=== PATIENT | female | born 1985 | race Two or more races ===

== ENCOUNTER 2020-09-10 07:45 | Inpatient (IN) | payer OTHER ==
[~2020-09-10] VITALS: Ht 160 cm; Wt 54.4 kg
[2020-09-10] MEDS ORDERED: SYNTHROID50 MCG PO (10:27)
[2020-09-10] MEDS ORDERED: INTEGRA CAPSUL1 EACH PO (10:27)
[2020-09-10] MEDS ORDERED: NEURIN SL (10:28)
[2020-09-17] MEDS ORDERED: ABANEU-SL TABL1 EACH (07:57)
[2020-09-20] MEDS ORDERED: SIMETHICONE125 M1 PO (07:04)
[2020-09-20] MEDS ORDERED: FAMOTIDINE20 MG PO (07:04)
[2020-09-20] MEDS ORDERED: IBUPROFEN800 MG PO (07:04)
[2020-09-20] MEDS ORDERED: NEURONTIN600 MG PO (07:04)
== END 2020-09-20 09:24 | disposition home or self-care (01) | DRG 743 ==
LOC: SURG-SUITE 09-17 06:00 → O/R 09-17 06:00 → SURH 09-17 07:45 → SURG-SUITE 09-17 11:10
PROVIDERS: ADMIT Obstetrics & Gynecology; ATTEND Obstetrics & Gynecology
PROC: 0UB10ZZ Excision of Left Ovary, Open Approach (ICD-10-PCS; 2020-09-17)
PROC: 0UT90ZZ Resection of Uterus, Open Approach (ICD-10-PCS; principal; 2020-09-17 10:00)
PROC: 0UT70ZZ Resection of Bilateral Fallopian Tubes, Open Approach (ICD-10-PCS; 2020-09-17 10:00)
DX: D25.1 Intramural leiomyoma of uterus (principal); D25.0 Submucous leiomyoma of uterus; D25.2 Subserosal leiomyoma of uterus; E03.8 Other specified hypothyroidism; N72 Inflammatory disease of cervix uteri; N83.8 Other noninflammatory disorders of ovary, fallopian tube and broad ligament